=== PATIENT | female | born 1975 | race Caucasian/White ===

== ENCOUNTER 2017-02-13 14:39 | Emergency (ER) | payer BC ==
--- NOTE | 2017-02-16 18:24 | ER ---
ADMIT: 02/13/2017 RM/LOC: ER [facility] MR#: [id number] [id number] SAMANTHA CARRILLO [address] [place] [id number] Emergency Room Report SEX: F AGE: 41 : 1975 DATE: 02/13/2017 HISTORY OF PRESENT ILLNESS: The patient is a 41-year-old, who comes in very anxious. She says she has hypertension. Her blood pressure has been very hard for the last 3 days. She reports 147/115. She has had vitals taken in the ER 137/95, pulse 87, respirations 16, temp 96.1, and O2 sats 99%. She says she is dizzy as well. She takes lisinopril for her urinary infection. She has a past medical history of hypertension and anemia. 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 She feels clammy and dizzy as if she reported as a possible anxiety attack. Her white count is 11. Her chemistries normal except for AST 87, ALT 155, leukocytes in the urine are 3+ with wbc's of 73, and rbc's of 13. Culture and sensitivity to follow. Normal sinus rhythm in the EKG 78. CLINICAL IMPRESSION: Urinary tract infection, dizziness, and elevated blood pressure with a diagnosis of hypertension. The patient was given a prescription for Bactrim for the urinary tract infection. Encouraged to follow up with the primary provider. Hydration. Continue medications. I think at this point she became a little anxious when she felt the symptoms of the urinary tract infection for the last 3 days, but thought that this was related to her blood pressure and got pretty anxious. RAMBO Cheek / Fer Coronel MD / dashawn JOB #: [id number] CC: Fer Coronel MD, Attending Physician Anmol Nix MD, Family Physician
== END 2017-02-13 16:50 | disposition home or self-care (01) ==
LOC: ER 14:39
DX: N39.0 Urinary tract infection, site not specified (principal); I10 Essential (primary) hypertension; F17.210 Nicotine dependence, cigarettes, uncomplicated; Z88.0 Allergy status to penicillin